=== PATIENT | male | born 1970 | race African-American/Black ===

== ENCOUNTER 2024-04-17 19:22 | Observation (INO) | payer OTHER ==
[2024-04-17 22:38] VITALS: BMI 32.5
[2024-04-17] MEDS ORDERED: Calcium Carbonate 500 MG ChewTAB PO PRN (22:49)
[2024-04-17] MEDS ORDERED: Ondansetron ODT 4 MG TAB PO PRN (22:49)
[2024-04-17] MEDS ORDERED: Acetaminophen 650 MG Suppository PR PRN (22:49)
[2024-04-17] MEDS ORDERED: Acetaminophen 325 MG TAB PO PRN (22:49)
[2024-04-17] MEDS ORDERED: Ondansetron PF 4 MG/2 ML Vial IVP PRN (22:49)
[2024-04-18 04:46] LABS: #Basophils 0.04 10x3/uL (0.0-0.2); %Basophils 0.7 % (0.0-1.0); %Eosinophils 2.8 % (0.0-10.0); %Monocytes 7.2 % (0.0-10.0); %Neutrophils 62.1 % (42.0-75.0); Hematocrit 33.9 % (42.0-52.0); Hemoglobin 10.6 g/dL (14.0-18.0); Mean Corpuscular HGB CONC 31.3 g/dL (32.0-36.0); Mean Corpuscular Hemoglobin 26.6 pg (27.0-31.0); Mean Corpuscular Volume 85.2 fL (78.0-98.0); Mean Platelet Volume 10.1 fL (7.4-10.4); Platelet Count 196 10x3/uL (130-400); RBC Distribution Width 17.7 % (11.5-14.5); Red Blood Cell (RBC) Count 3.98 mill/uL (4.70-6.10)
[2024-04-18 04:49] LABS: Anion Gap 17 mmol/L (10-20); BUN (Urea Nitrogen) 107 mg/dL (8.4-25.7); Calc. Creatinine Clearance 13 mL/min (70-130); Calcium 8.5 mg/dL (7.8-10.44); Carbon Dioxide 21 mmol/L (22-29); Chloride 105 mmol/L (98-107); Estimated GFR 6; Glucose 155 mg/dL (70-105); Potassium 4.4 mmol/L (3.5-5.1); Sodium 139 mmol/L (136-145)
[2024-04-18] MEDS ORDERED: CEFAZOLIN 2 GM in Sodium Chloride 0.9% 100 ML IVPB SCH (07:00)
[2024-04-18] MEDS ORDERED: EPINEPHrine 1 MG/ML VIAL ONE (09:26)
[2024-04-18] MEDS ORDERED: Lidocaine 2% PF 5 ML VIAL ONE (09:26)
[2024-04-18] MEDS ORDERED: Bupivacaine PF 0.5% 30 ML VIAL ONE (09:26)
[2024-04-18] MEDS ORDERED: Heparin 10,000 UNITS/ 10 ML VIAL ONE ×2 (09:26→09:59)
[2024-04-18] MEDS ORDERED: Lidocaine 1% MPF 2 ML VIAL ONE (09:52)
[2024-04-18] MEDS ORDERED: PROPOFOL 20 ML ONE (10:15)
[2024-04-18] MEDS ORDERED: CEFAZOLIN 1 GM VIAL ONE (10:52)
[2024-04-18 13:29] LABS: Hep C Index 0.09 S/CO (0-0.79)
[2024-04-18 13:37] LABS: HBsAg Index 0.32 S/CO (0-0.99); Hep B Core Total Index 5.78 S/CO (0-0.79); Hep B Surf Ag NONREACTIVE S/CO (NonReactive); Hep C IgG Ab NONREACTIVE S/CO (NonReactive)
[2024-04-18 13:49] LABS: Hep B Core Total Ab REACTIVE (NonReactive); Hep B Surf AB REACTIVE (NonReactive)
[2024-04-18 14:22] LABS: HBSAB Concentration 14004.94 mIU/mL
[2024-04-18] MEDS ORDERED: Heparin 5,000 UNITS/ML VIAL SC SCH (21:00)
[2024-04-19 02:48] VITALS: BP 123/86; TEMP 97.5
== END 2024-04-18 19:37 | disposition home or self-care (01) ==
LOC: EDSTATUS 21:35 → T4-B 21:53
PROVIDERS: ADMIT Internal Medicine; ATTEND Internal Medicine
PROC: 0JH63XZ Insertion of Tunneled Vascular Access Device into Chest Subcutaneous Tissue and Fascia, Percutaneous Approach (ICD-10-PCS; principal; 2024-04-17)
DX: T82.590A Other mechanical complication of surgically created arteriovenous fistula, initial encounter (principal); I12.0 Hypertensive chronic kidney disease with stage 5 chronic kidney disease or end stage renal disease; N18.6 End stage renal disease; D63.1 Anemia in chronic kidney disease; Z99.2 Dependence on renal dialysis; Z98.49 Cataract extraction status, unspecified eye; Z79.899 Other long term (current) drug therapy; Y83.1 Surgical operation with implant of artificial internal device as the cause of abnormal reaction of the patient, or of later complication, without mention of misadventure at the time of the procedure
CPT/HCPCS: 36558; 71045; 80048; 80053; 83735; 85025 ×2; 86704; 86706; 86803; 87340; 93005; A6258; C1750; G0378 ×2; J0171; J0665; J0690; J1644; J2704; 36415; 90935; 99284; G0257